=== PATIENT | male | born 1985 | race Caucasian/White ===

== ENCOUNTER 2019-03-20 08:10 | Emergency (ER) | payer BC ==
--- NOTE | 2019-03-20 08:38 | ED Physician Documentation ---
History of Present Illness - Stated complaint Stated Complaint: SWEATS/DIZZY - History obtained from History obtained from: Patient - Additonal information Additional information: Patient is a previously healthy 33-year-old male presenting with several days of diaphoresis, subjective fevers, chills, productive cough and chest discomfort with coughing. Patient also complains of mild nasal decongestion without significant sore throat, ear pain, or rhinorrhea. Patient denies nausea, vomiting, abdominal pain, urinary. Patient does report diarrhea earlier today. Patient is taken [id number] flu medications without much relief. No other improving or worsening factors noted. Review of Systems Constitutional: reports: Fever, Chills Cardiac: reports: Chest pain / pressure Respiratory: reports: Cough. denies: Dyspnea GI: reports: Diarrhea. denies: Abdominal Pain, Nausea, Vomiting : denies: Dysuria PD PAST MEDICAL HISTORY - Past Medical History Past Medical History: No - Past Surgical History Past Surgical History: No - Present Medications Home Medications: Ambulatory Orders Medication Instructions Recorded Confirmed Azithromycin 250 mg PO DAILY 5 Days #6 tab 03/20/19 - Allergies Allergies/Adverse Reactions: Allergies Allergy/AdvReac Type Severity Reaction Status Date / Time No Known Drug Allergies Allergy Verified 03/20/19 08:49 PD ED PE NORMAL - Vitals Vital signs reviewed: Yes - General General: Alert and oriented X 3, No acute distress, Well developed/nourished - HEENT HEENT: Atraumatic, Moist mucous membranes, Pharynx benign, Dentition benign - Cardiac Cardiac: RRR, No murmur - Respiratory Respiratory: No respiratory distress. No: Clear bilaterally (Dry cough present. Expiratory wheezing throughout with generalized poor air movement.) - Abdomen Abdomen: Soft, Non tender, Non distended - Derm Derm: Normal color, No rash. No: Warm and dry (Slightly diaphoretic) - Extremities Extremities: No deformity, No tenderness to palpate - Neuro Neuro: Alert and oriented X 3, No motor deficit, No sensory deficit - Psych Psych: Normal mood, Normal affect Results - Vitals Vitals: Vital Signs - 24 hr 03/20/19 03/20/19 08:34 08:58 Temperature 36 C L Heart Rate 90 96 Respiratory 16 16 Rate Blood Pressure 147/86 H O2 Saturation 98 Oxygen O2 Source Room air - EKG (time done) 0904 Rate: Rate (enter#) (94) Rhythm: NSR Intervals: RBBB PD MEDICAL DECISION MAKING - ED course Complexity details: reviewed results, re-evaluated patient, considered differential, d/w patient ED course: Most concerning for pneumonia given patient's constellation of symptoms and physical exam findings, particular pulmonary findings. Patient does complain of chest discomfort which is likely more related to his repetitive coughing as opposed to PE, ACS, CO, unstable angina, dissection, aneurysm, but considered. Also obtained EKG which did not find evidence of acute ischemia. Do not feel patient requires further cardiac work-up at this time. Will obtain chest x-ray to further evaluate for pneumonia however. Given pulmonary findings, patient also received DuoNeb. Remainder physical exam relatively unremarkable. Do not feel patient is in sepsis or septic shock. Do not feel he requires invasive testing otherwise at this time.Chest x-ray returned indicative of pneumonia. [place] appropriate to give first time dose of antibiotic in the ED with Rocephin IM. Prescribed azithromycin for home, as well as discussed other supportive cares, return precautions, and appropriate follow-up. Patient voiced understanding and is comfortable with discharge plan. Departure - Departure Disposition: 01 Home, Self Care Clinical Impression: Pneumonia Qualifiers: Pneumonia type: due to unspecified organism Laterality: unspecified laterality Lung location: unspecified part of lung Qualified Code(s): J18.9 - Pneumonia, unspecified organism Condition: Good Instructions: ED Pneumonia Adult Follow-Up: your,doctor [Other] Prescriptions: Azithromycin 250 mg PO DAILY 5 Days #6 tab Comments: Please take antibiotics as prescribed to treat pneumonia. Also recommend [id number] medications such as ibuprofen/Tylenol, TheraFlu, etc. as needed for other symptoms. Recommend hydration with Powerade/Gatorade, healthy diet, rest, and follow-up with your primary care physician in next 2 to 3 days. Return to ED sooner if you experience worsening symptoms or other concerns.
[2019-03-20] MEDS ORDERED: IPRATROPIUM/ALBUTEROL 3 ML NEB INH STA (08:44)
--- NOTE | 2019-03-20 09:34 | XRAY Report ---
Reason: cough Procedure Date: 03/20/2019 Accession Number: [id number] / [id number] Procedure: XR - Chest 2 View X-Ray CPT Code: 08343 FULL RESULT: EXAM: CHEST RADIOGRAPHY EXAM DATE: 03/20/2019 09:20 AM. CLINICAL HISTORY: Cough. COMPARISON: None. TECHNIQUE: 2 views. FINDINGS: Lungs/Pleura: Left mid lung/lingular and right middle lobe opacity. No pleural effusions. No pneumothorax. Linear scarring in the left midlung. Mediastinum: Heart and mediastinal contours are unremarkable. Other: None. IMPRESSION: 1. Lingular and right middle lobe opacity most likely representing developing consolidation. RADIA
[2019-03-20] MEDS ORDERED: LIDOCAINE 1% 2 ML VIAL MC ONE (09:52)
[2019-03-20] MEDS ORDERED: cefTRIAXone 1 GM VIAL IM STA (09:52)
[2019-03-20 10:49] VITALS: BP 137/92
== END 2019-03-20 10:49 | disposition home or self-care (01) ==
LOC: ED 08:10
DX: J18.1 Lobar pneumonia, unspecified organism (principal)
CPT/HCPCS: 71046; 93005; 94640; 96372; 99282; 99284